=== PATIENT | male | born 1940 | race Caucasian/White ===

== ENCOUNTER 2017-08-01 10:06 | Day surgery (SDC) | payer MEDICARE, OTHER ==
--- NOTE | 2017-08-01 16:51 | GI Report ---
REFERRING PHYSICIAN: Dr. Ronny Rey ELECTROMEDICAL EQUIPMENT TECHNICIAN: Chaparro Calderon MD PROCEDURE MEDICATION: Propofol as per anesthesia. INDICATIONS: Patient is a 76-year-old man from [facility]. He has dementia and not a good historian. He apparently has been choking on food. His weight is down to 101 pounds. He has chronic lung disease and a history of chronic alcohol usage. He is referred for the above indications. Again, the patient is a terrible historian. He is really chronically ill appearing. On exam, lungs with decreased breath sounds. Heart sounds are distant. He has got a large midline abdominal surgery scar. He has no idea what the surgery was about. PROCEDURE PERFORMED: Endoscopy and biopsy and esophageal dilatation. PROCEDURE: An Olympus video endoscope was passed into the oropharynx. It was a very difficult and slow tedious process to find one's way into the proximal esophagus. He has the appearance of a Zenker's diverticulum but could never get enough air to distend it to see well. He also has a slight stricture at the GE junction, a hiatal hernia. The stomach is entered. There is diffuse gastritis. Biopsies were taken for pathology and H. Pylori. Duodenal bulb, he has got a couple of superficial ulcers. A guidewire was placed in the stomach. The endoscope was removed and a 15 mm passed over the guidewire without difficulty. The endoscope was reintroduced. There was a little bleeding in the area of the cricopharyngeus suggesting he may have a stricture there. Again, there is not much motility in the body of the esophagus. Patient tolerated the procedure well. FINDINGS: Multiple issues. 1. 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 Motility disorder of the esophagus. 3. Concern whether he might have a Zenker's diverticulum but visualization was not great and a barium swallow might help in that regard to define the pharynx and proximal esophagus a little bit better. RECOMMENDATIONS: 1. Today, he needs to be on just liquids. 2. At some point, would do a barium swallow, just so we can see the back of the throat and the proximal esophagus a little bit better. 3. Avoid cold liquids. 4. Again, would recommend he discontinue tobacco usage and alcohol. cc: Dr. Ronny PREEZ
== END 2017-08-01 10:07 ==
LOC: OPSURG 10:06
PROVIDERS: ATTEND Internal Medicine Gastroenterology
DX: R13.12 Dysphagia, oropharyngeal phase (principal); K22.2 Esophageal obstruction
CPT/HCPCS: 43239; 43248; J2001; J2704; J7120; S1016

== ENCOUNTER 2017-11-22 20:50 | Observation (INO) | payer MEDICARE, OTHER ==
--- NOTE | 2017-11-22 20:53 | ED Physician Documentation ---
Upper Respiratory Symptoms - HISTORIAN Historian: patient - HPI Stated Complaint: confusion Chief Complaint: Altered Mental Status Onset: hours (3) Duration: constant Severity: mild Associated Symptoms: shortness of breath. denies: fever, runny nose Worsened by Deep Breath: No Further Comments: no - ROS CONST/EYES: denies: weakness CVS/RESP: shortness of breath LYMPH: denies: rash GI/: none NEURO/PSYCH: denies: fainting, dizziness - PAST HX Lung Disease: COPD PE Risk Factors: hypertension, other (dementia ) Immunizations: UTD Allergies/Adverse Reactions: Allergies Allergy/AdvReac Type Severity Reaction Status Date / Time Penicillins Allergy Verified 11/22/17 21:20 Home Medications: Ambulatory Orders Medication Instructions Recorded Aspirin [Talon] 81 mg PO DAILY 11/22/17 Donepezil HCl [Aricept] 5 mg PO HS 11/22/17 Ferrous Sulfate 325 mg PO BID 11/22/17 Fluoxetine HCl [Prozac] 10 mg PO DAILY 11/22/17 Gabapentin [Neurontin] 200 mg PO BID 11/22/17 Hydroxyzine Pamoate [Vistaril] 25 mg PO Q6 11/22/17 Ipratropium/Albuterol Sulfate 3 ml NEB Q6H PRN 11/22/17 [Duoneb] Lisinopril [Prinivil] 5 mg PO QD 11/22/17 Multivitamin [Daily Multiple 1 each PO DAILY 11/22/17 Vitamin] Risperidone [Risperdal] 0.25 mg PO HS 11/22/17 - SOCIAL HX Smoking History: cigarettes Alcohol Use: none Drug Use: none - FAMILY HX Family History: none - VITAL SIGNS Vital Signs: Vital Signs Temp Pulse Resp BP Pulse Ox 98 F 96 H 22 139/64 96 11/23/17 09:52 11/23/17 10:00 11/23/17 10:00 11/23/17 09:52 11/23/17 10:00 - REVIEWED ASSESSMENTS Nursing Assessment Reviewed: Yes Vitals Reviewed: Yes Progress - Progress Progress: 0: discussed with Dr Rey - agreed to Observation for hyponatremia DG ED Results Lab/Radiology - Lab Results Lab Results: Lab Results 11/22/17 11/22/17 21:00 21:00 WBC 8.10 K/ul K/ul (4.00-12.00) RBC 4.13 M/ul M/ul (3.90-5.20) Hgb 10.5 g/dL L g/dL (12.0-18.0) Hct 33.9 % L % (37.0-53.0) MCV 82.0 fl fl (80.0-100.0) MCH 25.4 pg L pg (28.0-34.0) MCHC 30.9 g/dL g/dL (30.0-36.0) RDW 16.2 % H % (11.3-14.3) Plt Count 345 K/mm3 K/mm3 (130-400) Neut % (Auto) 75.8 % % (39.0-79.0) Lymph % (Auto) 11.9 % L % (16.0-50.0) Calhoun % (Auto) 6.0 % % (0.0-11.0) Eos % (Auto) 4.1 % % (0.0-6.8) Baso % (Auto) 0.6 (0.0-1.5) Neut # (Auto) 6.1 # k/uL # k/uL (1.4-7.7) Lymph # (Auto) 1.0 # k/uL # k/uL (0.6-4.0) Calhoun # (Auto) 0.5 # k/uL # k/uL (0.0-0.9) Eos # (Auto) 0.3 # k/uL # k/uL (0.0-0.6) Baso # (Auto) 0.0 # k/uL # k/uL (0.0-0.5) Reactive Lymphs % 1.6 % % (0.0-5.0) Reactive Lymphs # 0.1 # k/uL # k/uL (0.0-0.8) Sodium 129 mmol/L L mmol/L (136-145) Potassium 3.9 mmol/L mmol/L (3.5-5.1) Chloride 94 mmol/L L mmol/L (98-107) Carbon Dioxide 25 mmol/L mmol/L (22-30) BUN 15 mg/dL mg/dL (9-20) Creatinine 0.90 mg/dL mg/dL (0.66-1.25) Estimated Creat Clear 46 Est GFR ( Amer) > 60 (60 - ) Est GFR (Non-Af Amer) > 60 (60 - ) Glucose 117 mg/dL H mg/dL (74-106) Calcium 9.4 mg/dL mg/dL (8.4-10.2) Total Bilirubin < 0.1 mg/dL L mg/dL (0.2-1.3) AST 30 U/L U/L (15-46) ALT 26 U/L U/L (13-69) Alkaline Phosphatase 60 U/L U/L (38-126) Total Protein 7.5 g/dL g/dL (6.3-8.2) Albumin 4.2 g/dL g/dL (3.5-5.0) - Radiology Radiology Impressions: 2 views of the chest History: COUGH, CONGESTION, LEFT SIDED CHEST PAIN No comparison studies are available Hyperexpanded lungs with emphysema. Heart is normal in size. Aortic calcification is present. Bibasilar atelectasis is present. Calcified right hilar lymph nodes are seen. A rounded nodule in the peripheral right lower lung is suggestive of calcified granuloma. Minimal blunting of the left costophrenic angle may be due to pleural effusion versus pleural thickening. Prominent right paratracheal opacity Bones are demineralized with extensive multilevel degenerative changes. Compression deformity of upper and mid thoracic vertebral bodies are seen. Impression: 1. Patchy right paratracheal opacity may be secondary to atelectasis. Attention on followup. 2. Emphysema. Bibasilar atelectasis. Sequela of old granulomatous disease. 3. Tiny left pleural effusion versus pleural thickening. Electronically signed on Nov 22, 2017 9:31:26 PM CDT by: Ro Roth - Orders Orders: ED Orders Category Date Time Status Davon Wrap to Bilateral Lower Ex 1T Care 11/22/17 22:53 Active Activity as ordered D Care 11/22/17 22:53 Active Activity as ordered D Care 11/22/17 22:53 Completed Assess pulse oximetry Q4H Care 11/22/17 22:53 Active Do Not Give Influenza Vaccine 1T Care 11/22/17 22:53 Active Do Not Give Pneumococcal Vacci 1T Care 11/22/17 22:53 Active Document Bowel Movement Q8H Care 11/22/17 22:53 Active ED Provider NOW Care 11/22/17 22:53 Ordered Monitor for changes in mental Q2H Care 11/22/17 22:53 Active Observation-Telemetry NOW Care 11/22/17 22:53 Ordered Vital Signs Q4 Care 11/22/17 22:53 Active Fluid Restriction Diet 11/22/17 Breakfast Completed Regular Diet 11/22/17 Breakfast Completed Regular Diet 11/22/17 Breakfast Completed CHEST 2VIEW [RAD] DAILY Exams 11/23/17 06:00 Completed CHEST 2VIEW [RAD] Stat Exams 11/22/17 Completed BNP [NT-proBNP] Stat Lab 11/22/17 22:53 Completed CBC/PLATELET/DIFF Routine Lab 11/23/17 06:20 Completed CBC/PLATELET/DIFF Stat Lab 11/22/17 21:00 Completed CMP Routine Lab 11/23/17 06:20 Completed CMP Stat Lab 11/22/17 21:00 Completed 0.9 % Sodium Chloride [Normal Saline] 1,000 ml Med 11/22/17 21:25 Discontinued IV Q1H 0.9 % Sodium Chloride [Normal Saline] 1,000 ml Med 11/22/17 21:29 Discontinued IV Q1H Aspirin Med 11/23/17 09:00 Discontinued 81 mg PO DAILY Donepezil HCl [Aricept] Med 11/23/17 21:00 Discontinued 5 mg PO HS Fluoxetine HCl [Prozac] Med 11/23/17 09:00 Discontinued 10 mg PO DAILY Gabapentin [Neurontin] Med 11/23/17 09:00 Discontinued 200 mg PO BID Hydroxyzine Pamoate [Vistaril] Med 11/23/17 00:00 Discontinued 25 mg PO Q6 Ipratropium/Albuterol Sulfate [Duoneb] Med 11/22/17 22:53 Discontinued 3 ml NEB Q4 PRN Lisinopril [Prinivil] Med 11/22/17 22:53 Discontinued 5 mg PO QD Risperidone [Risperdal] Med 11/23/17 21:00 Discontinued 0.25 mg PO HS Resuscitation Status Routine Oth 11/22/17 22:53 Ordered Transfer Routine Transfer 11/22/17 Completed Upper Respiratory Symptoms - EXAM General Appearance: no acute distress, alert EENT: eyes nml inspection, nml ENT inspection Neck: normal inspection Respiratory: no resp. distress, breath sounds nml, no pain on inspiration, speaks full sentences Abdomen: non-tender, nml bowel sounds, no distention CVS: reg rate & rhythm, heart sounds normal, equal pulses, no murmur Skin: color nml, no rash, warm,dry Extremities: non-tender, normal range of motion, no evidence of injury, no edema Neuro/Psych: disoriented (aware of day of week. discusses things that he then states happened 12 or more years ago. calling out to people. ) Discharge Clincal Impression: Hyponatremia Condition: Fair Disposition: ADMITTED INPATIENT Decision to Admit: [id number] Date of Decison to Admit: 11/22/17 Decision Time: 21:50
[2017-11-22 21:04] LABS: BASOPHILS % 0.6 (0.0-1.5); EOSINOPHILS % 4.1 % (0.0-6.8); MEAN CORPUSCULAR HEMOGLOBIN 25.4 pg (28.0-34.0); NEUTROPHILS # 6.1 # k/uL (1.4-7.7)
[2017-11-22 21:22] LABS: eGFR (African) > 60; eGFR (Non-African) > 60
[2017-11-22] MEDS ORDERED: 0.9 % SODIUM CHLORIDE 1,000 ML IV ONE (21:25)
[2017-11-22] MEDS: 0.9 % SODIUM CHLORIDE 1,000 ML IV ONE (21:35)
[2017-11-22] MEDS ORDERED: LISINOPRIL 5 MG TABLET PO SCH (22:53)
[2017-11-22] MEDS ORDERED: IPRATROPIUM/ALBUTEROL SULFATE 3 ML AMPUL.NEB NEB PRN (22:53)
[2017-11-22] MEDS ORDERED: HYDROXYZINE HCL 25 MG TABLET PO ONE (23:07)
[2017-11-22] MEDS: HYDROXYZINE PAMOATE 25 MG PO SCH ×2 (23:12→23:19)
[2017-11-22 23:39] VITALS: BMI 20.5
[2017-11-23] MEDS ORDERED: ASPIRIN EC 81 MG TABLET.DR ONE (00:16)
[2017-11-23] MEDS ORDERED: FLUoxetine HCL 10 MG CAPSULE PO ONE (00:16)
[2017-11-23] MEDS ORDERED: HYDROXYZINE HCL 25 MG TABLET PO ONE (00:18)
[2017-11-23] MEDS: 0.9 % SODIUM CHLORIDE 1,000 ML IV ONE (04:12)
[2017-11-23] MEDS: HYDROXYZINE PAMOATE 25 MG PO SCH (06:14)
[2017-11-23 07:10] LABS: EOSINOPHILS % 5.8 % (0.0-6.8); MEAN CORPUSCULAR HEMOGLOBIN 25.4 pg (28.0-34.0); MEAN CORPUSCULAR VOLUME 83.1 fl (80.0-100.0); MONOCYTES % 6.2 % (0.0-11.0); NEUTROPHILS # 5.7 # k/uL (1.4-7.7)
[2017-11-23 07:23] LABS: eGFR (African) > 60; eGFR (Non-African) > 60
--- NOTE | 2017-11-23 07:40 | Diagnostic Imaging Report ---
ARELI BENAVIDEZ [facility] [address] [facility] [address] [place], [place]. [address] Report Submission Date: Nov 23, 2017 7:31:23 AM CDT Patient Study Name: MIKA DALEY Date: Nov 23, 2017 7:12:35 AM CDT Modality Type: DX Gender: M Description: CHEST : 40 Institution: [facility] Physician: ARELI BENAVIDEZ HISTORY: 76-year-old male with cough and chest congestion. COMPARISON: Chest x-ray dated 11/22/2017. TECHNIQUE: 2 views of the chest were performed. FINDINGS: The lungs are hyperexpanded. No pneumothorax, new infiltrates, pleural effusions, or pulmonary edema. The heart is not enlarged. The aortic arch is calcific. Right paratracheal soft tissue density is stable. IMPRESSION: 1. Emphysema without new pulmonary infiltrates. 2. Atherosclerotic vascular disease. 3. Stable right paratracheal soft tissue prominence may be vascular in nature or due to thyromegaly. Electronically signed on Nov 23, 2017 7:31:23 AM CDT by: Dmitriy PEREZ
--- NOTE | 2017-11-23 07:41 | Diagnostic Imaging Report ---
ARELI BENAVIDEZ [facility] [place] [facility] [address] [facility] [address] [place], [place]. [address] Report Submission Date: Nov 22, 2017 9:31:26 PM CDT Patient Study Name: MIKA DALEY Date: Nov 22, 2017 9:04:36 PM CDT Modality Type: DX Gender: M Description: CHEST : 40 Institution: [facility] [place] [facility] Physician: ARELI BENAVIDEZ 2 views of the chest History: COUGH, CONGESTION, LEFT SIDED CHEST PAIN No comparison studies are available Hyperexpanded lungs with emphysema. Heart is normal in size. Aortic calcification is present. Bibasilar atelectasis is present. Calcified right hilar lymph nodes are seen. A rounded nodule in the peripheral right lower lung is suggestive of calcified granuloma. Minimal blunting of the left costophrenic angle may be due to pleural effusion versus pleural thickening. Prominent right paratracheal opacity Bones are demineralized with extensive multilevel degenerative changes. Compression deformity of upper and mid thoracic vertebral bodies are seen. Impression: 1. Patchy right paratracheal opacity may be secondary to atelectasis. Attention on followup. 2. Emphysema. Bibasilar atelectasis. Sequela of old granulomatous disease. 3. Tiny left pleural effusion versus pleural thickening. Electronically signed on Nov 22, 2017 9:31:26 PM CDT by: Ro PEREZ
[2017-11-23] MEDS ORDERED: FLUOXETINE HCL 10 MG PO SCH (09:00)
[2017-11-23] MEDS ORDERED: ASPIRIN 81 MG CHEW TAB PO SCH (09:00)
[2017-11-23] MEDS ORDERED: GABAPENTIN 100 MG CAPSULE PO SCH (09:00)
[2017-11-23 09:54] VITALS: BP 139/64
[2017-11-23] MEDS ORDERED: HYDROXYZINE HCL 25 MG TABLET PO SCH (11:00)
[2017-11-23] MEDS ORDERED: RISPERIDONE 0.25 MG PO SCH (21:00)
[2017-11-23] MEDS ORDERED: DONEPEZIL HCL 5 MG TABLET PO SCH (21:00)
[2017-11-23] MEDS ORDERED: risperiDONE 0.5 MG TABLET PO SCH (21:00)
[2017-11-24] MEDS ORDERED: FLUoxetine HCL 10 MG CAPSULE PO SCH (09:00)
--- NOTE | 2017-12-01 13:28 | Discharge Summary ---
DATE OF ADMISSION: November 22, 2017 DATE OF DISCHARGE: November 23, 2017 DIAGNOSES ON THIS HOSPITALIZATION: 1. Hyponatremia. 2. Mental status change. 3. Chronic obstructive pulmonary disease (COPD). SUMMARIZATION OF ADMISSION HISTORY AND PHYSICAL: This is a 76-year-old male patient of mine from [facility] who is well known to myself. He had been having some mental status changes over the last several days. He was short of breath, which is about his baseline. He does have advanced dementia. He was seen in the emergency department where a chest x-ray did not demonstrate a significant infiltrate; however, he was noted to be somewhat hyponatremic at 129. He was admitted for some IV fluid resuscitation. By the next morning, his sodium had come up to 133. As a result, he was discharged back to [facility] in improved condition with continuation of all of his current medications. I recommended to continue to increase fluid intake, and I will see him there on Tuesday for follow up. CHRIS
== END 2017-11-23 11:45 ==
LOC: ED 20:50 → SOUTH 22:27 → INTOOBSV 22:27
PROVIDERS: ADMIT Nurse Practitioner Family; ATTEND Nurse Practitioner Family
DX: E87.1 Hypo-osmolality and hyponatremia (principal); J44.9 Chronic obstructive pulmonary disease, unspecified
CPT/HCPCS: 36415; 71046; 80053; 83880; 85025; G0378; J7030; 96365; 96366; 99217; 99218; G0379; S1016